=== PATIENT | female | born 1995 | race African-American/Black ===

== ENCOUNTER 2019-02-10 12:34 | Outpatient (CLI) | payer OTHER | END 2019-02-10 23:59 | disposition home or self-care (01) | LOC: CFH 12:34 | PROVIDERS: ATTEND Physician Assistant Medical | DX: N60.21 Fibroadenosis of right breast (principal) ==

== ENCOUNTER → 2020-10-15 | Outpatient (CLI) | payer OTHER ==
[~2020-10-15] MED LIST: NONE PER PT
== END | disposition home or self-care (01) ==
LOC: STAR 15:28
PROVIDERS: ATTEND Surgery
DX: Z20.822 Contact with and (suspected) exposure to COVID-19 (principal)
CPT/HCPCS: 87635

== ENCOUNTER 2020-10-21 10:12 | Day surgery (SDC) | payer OTHER ==
[~2020-10-21] VITALS: Ht 165.1 cm; Wt 55.0 kg
[~2020-10-21 10:12] MED LIST changes: +BUPIVACAINE/PF 0.5% ONE; +EPINEPHRINE 1 MG/ML, 1ML ONE; +ISOSULFAN BLUE 10 MG/ML, 5ML IV ONE
[2020-10-21] MEDS ORDERED: LACTATED RINGERS 1,000 ML IV SCH (10:30)
[2020-10-21] MEDS ORDERED: CHLORHEXIDINE 15 ML UDC MM ONE (10:30)
[2020-10-21 10:35] VITALS: BP 113/71
[2020-10-21] MEDS ORDERED: FENTANYL PF 100 MCG/2ML ONE (11:29)
[2020-10-21] MEDS ORDERED: MIDAZOLAM 1 MG/ML, 2ML ONE (11:30)
[2020-10-21] MEDS ORDERED: CEFAZOLIN 1,000 MG ONE ×2 (11:34→11:41)
[2020-10-21] MEDS ORDERED: DEXAMETHASONE 4 MG/ML, 1ML ONE (11:41)
[2020-10-21] MEDS ORDERED: ONDANSETRON 2MG/ML, 2ML ONE ×2 (11:41→11:52)
[2020-10-21] MEDS ORDERED: PROPOFOL 10 MG/ML, 20ML ONE (11:52)
[2020-10-21] MEDS ORDERED: HYDR-1067 PO (12:07)
[2020-10-21] MEDS ORDERED: OXYcodone 5 MG/5 ML ORAL.SOL UDC PO PRN (12:30)
[2020-10-21] MEDS ORDERED: PROMETHAZINE 12.5 MG SUPP PR PRN (12:30)
[2020-10-21] MEDS ORDERED: ONDANSETRON 2MG/ML, 2ML IVPush PRN (12:30)
[2020-10-21] MEDS ORDERED: hydrALAzine 20 MG/ML, 1ML IV PRN (12:30)
[2020-10-21] MEDS ORDERED: DIPHENHYDRAMINE 50 MG/ML, 1ML IVPush PRN ×2 (12:30)
[2020-10-21] MEDS ORDERED: ALBUTEROL SULFATE 2.5 MG/3 ML NPPB PRN (12:30)
[2020-10-21] MEDS ORDERED: FENTANYL PF 100 MCG/2ML IV PRN (12:30)
[2020-10-21] MEDS ORDERED: ACETAMINOPHEN 325 MG TABLET PO PRN (12:30)
[2020-10-21] MEDS ORDERED: EPHEDRINE 50 MG/ML, 1ML IVPush PRN (12:30)
[2020-10-21] MEDS ORDERED: MEPERIDINE/PF 25MG/0.5ML IVPush PRN (12:30)
[2020-10-21] MEDS ORDERED: PROMETHAZINE 25 MG/ML, 1ML IVPush PRN (12:30)
[2020-10-21] MEDS ORDERED: LABETALOL 5MG/ML, 20ML IV PRN (12:30)
[2020-10-21] MEDS ORDERED: MIDAZOLAM 1 MG/ML, 2ML IV PRN (12:30)
[2020-10-21] MEDS ORDERED: HYDROmorphone 1 MG/ML, 1ML INJ IVPush PRN (12:30)
[2020-10-21] MEDS ORDERED: DIAZEPAM 5 MG/ML, 2ML IVPush PRN (12:30)
[2020-10-21] MEDS ORDERED: ACETAMINOPHEN 650 MG/20.3 ML UDC ONE (12:41)
== END 2020-10-21 14:05 | disposition home or self-care (01) ==
LOC: OUT 10:12
PROVIDERS: ATTEND Surgery
DX: N63.13 Unspecified lump in the right breast, lower outer quadrant (principal); D24.1 Benign neoplasm of right breast; Z79.899 Other long term (current) drug therapy; Z83.3 Family history of diabetes mellitus; Z83.42 Family history of familial hypercholesterolemia
CPT/HCPCS: 19120; 36415; 84703; 88305; J0171; J0690; J1100; J2250; J2405; J2704; J3010; J7120